=== PATIENT | male | born 1935 | race Caucasian/White ===

== ENCOUNTER 2021-01-02 20:47 | Inpatient (IN) ==
[2021-01-03] MEDS ORDERED: Ondansetron 4 MG/2 ML VIAL IVP PRN (02:35)
[2021-01-03] MEDS ORDERED: Naloxone 0.4 MG/ML INJ IVP PRN (02:35)
[2021-01-03 05:19] LABS: Protein/Creatinine Ratio,Urine 1.44 mg/mg (0.00-0.20); Sodium, Urine 36.3 mEq/L
[2021-01-03] MEDS: Budesonide/Formoterol 160/4.5 1 PUFF INH IH SCH ×2 (07:49→22:28)
[2021-01-03] MEDS ORDERED: *HR* Rivaroxaban 10 MG TABLET PO SCH (09:00)
[2021-01-03 09:49] LABS: Basophils % 0.4 %; Eosinophils # 0.3 K/mcL (0.0-0.6); Eosinophils % 2.9 %; Hematocrit 43.7 % (37.5-50.1); Hemoglobin 13.8 g/dL (12.9-16.9); Immature Granulocytes % 0.7 % (0-4); Lymphocytes # 1.9 K/mcL (0.6-4.6); Lymphocytes % 17.7 %; Mean Corpuscular HGB Conc 31.6 g/dL (31.6-35.5); Mean Corpuscular Hemoglobin 28.6 pg (28.0-33.3); Mean Corpuscular Volume 90.7 fL (83.0-100.0); Monocytes # 1.4 K/mcL (0.0-1.3); Monocytes % 13.2 %; Platelet Count 231 K/mcL (140-400); Red Blood Count 4.82 M/mcL (4.19-5.50); Red Cell Distribution Width 14.2 % (11.5-14.5); Segmented Neutrophils % 65.1 %; White Blood Count 10.8 K/mcL (4.3-11.1)
[2021-01-03 10:06] LABS: Calcium 9.2 mg/dL (8.6-10.3); Potassium 5.1 mEq/L (3.5-5.1)
[2021-01-03 10:20] LABS: Thyroid Stimulating Hormone 2.128 mcIU/mL (0.340-5.600)
[2021-01-03] MEDS: cefTRIAXone 1,000 MG in Water for inj. (sterile) 10 ML IVP SCH (11:11)
[2021-01-03] MEDS: Loratadine 10 MG TABLET PO SCH (11:12)
[2021-01-03] MEDS ORDERED: 0.9 % Sodium Chloride 1,000 ML IVC ONE (11:51)
[2021-01-03] MEDS: 0.9 % Sodium Chloride 1,000 ML IVC SCH (13:33)
[2021-01-03 15:02] LABS: Complement C3 88 mg/dL (87-200)
[2021-01-03 18:17] LABS: Protein/Creatinine Ratio,Urine 0.91 mg/mg (0.00-0.20)
[2021-01-04] MEDS: 0.9 % Sodium Chloride 1,000 ML IVC SCH ×2 (00:07→10:11)
[2021-01-04 01:54] LABS: Basophils % 0.3 %; Eosinophils # 0.2 K/mcL (0.0-0.6); Eosinophils % 1.9 %; Hematocrit 42.1 % (37.5-50.1); Hemoglobin 13.5 g/dL (12.9-16.9); Immature Granulocytes % 0.8 % (0-4); Lymphocytes # 1.5 K/mcL (0.6-4.6); Lymphocytes % 14.3 %; Mean Corpuscular HGB Conc 32.1 g/dL (31.6-35.5); Mean Corpuscular Hemoglobin 29.2 pg (28.0-33.3); Mean Corpuscular Volume 91.1 fL (83.0-100.0); Mean Platelet Volume 10.3 fL (9.4-12.4); Monocytes # 1.4 K/mcL (0.0-1.3); Monocytes % 13.3 %; Neutrophils # 7.4 K/mcL (1.6-8.9); Platelet Count 204 K/mcL (140-400); Red Blood Count 4.62 M/mcL (4.19-5.50); Red Cell Distribution Width 14.3 % (11.5-14.5); Segmented Neutrophils % 69.4 %; White Blood Count 10.6 K/mcL (4.3-11.1)
[2021-01-04 02:15] LABS: Calcium 8.7 mg/dL (8.6-10.3); Magnesium 1.4 mg/dL (1.6-2.6); Phosphorous 2.1 mg/dL (2.7-4.5)
[2021-01-04] MEDS: Budesonide/Formoterol 160/4.5 1 PUFF INH IH SCH ×2 (07:29→22:03)
[2021-01-04] MEDS: *HR* Rivaroxaban 15 MG TABLET PO SCH (10:11)
[2021-01-04] MEDS: Finasteride 5 MG TABLET PO SCH (10:11)
[2021-01-04] MEDS: Loratadine 10 MG TABLET PO SCH (10:11)
[2021-01-04] MEDS: cefTRIAXone 1,000 MG in Water for inj. (sterile) 10 ML IVP SCH (10:12)
[2021-01-05 07:16] LABS: Basophils % 0.3 %; Eosinophils # 0.3 K/mcL (0.0-0.6); Eosinophils % 3.2 %; Hematocrit 36.5 % (37.5-50.1); Immature Granulocytes % 0.7 % (0-4); Lymphocytes # 1.6 K/mcL (0.6-4.6); Lymphocytes % 15.2 %; Mean Corpuscular HGB Conc 31.8 g/dL (31.6-35.5); Mean Corpuscular Hemoglobin 28.8 pg (28.0-33.3); Mean Corpuscular Volume 90.6 fL (83.0-100.0); Mean Platelet Volume 10.6 fL (9.4-12.4); Monocytes # 1.2 K/mcL (0.0-1.3); Monocytes % 11.9 %; Neutrophils # 7.1 K/mcL (1.6-8.9); Platelet Count 185 K/mcL (140-400); Red Blood Count 4.03 M/mcL (4.19-5.50); Red Cell Distribution Width 14.1 % (11.5-14.5); Segmented Neutrophils % 68.7 %; White Blood Count 10.3 K/mcL (4.3-11.1)
[2021-01-05 07:17] LABS: Hemoglobin 11.6 g/dL (12.9-16.9)
[2021-01-05 07:40] LABS: BUN/Creatinine Ratio 20 (6-26); Blood Urea Nitrogen 24 mg/dL (8-23); Calcium 8.3 mg/dL (8.6-10.3); Carbon Dioxide 26 mEq/L (23-29); Chloride 105 mEq/L (98-107); Glucose 101 mg/dL (70-105); Magnesium 1.4 mg/dL (1.6-2.6); Osmolality,Calculated 288 (280-300); Phosphorous 2.6 mg/dL (2.7-4.5); Potassium 3.3 mEq/L (3.5-5.1); Sodium 137 mEq/L (136-145); eGFR For African Americans > 60 (> 60); eGFR For Non-African Americans 57 (> 60)
[2021-01-05] MEDS: 0.9 % Sodium Chloride 1,000 ML IVC SCH (09:46)
[2021-01-05] MEDS: Finasteride 5 MG TABLET PO SCH (09:47)
[2021-01-05] MEDS: *HR* Rivaroxaban 15 MG TABLET PO SCH (09:47)
[2021-01-05] MEDS: Loratadine 10 MG TABLET PO SCH (09:47)
[2021-01-05] MEDS: Budesonide/Formoterol 160/4.5 1 PUFF INH IH SCH ×2 (09:51→22:20)
[2021-01-05] MEDS ORDERED: Furosemide 20 MG/2 ML VIAL IVP ONE (10:14)
[2021-01-05] MEDS ORDERED: Perflutren Lipid Microsphere 1.3 ML in 0.9 % Sodium Chloride 8.7 ML IVP PRN (10:21)
[2021-01-05] MEDS ORDERED: *HR* Metoprolol 5 MG/5 ML VIAL IVP ONE (10:33)
[2021-01-05 11:08] LABS: ANA IgG by ELISA NONE DETECTED (None Detected); Serine Protease-3 Antibody 1 AU/mL (0-19)
[2021-01-05 11:28] LABS: ABG Base Excess 0 mEq/L (-2 to 3); ABG HCO3 24 mEq/L (21-27); ABG Oxygen Saturation 100 % (95-98); ABG PCO2 35 mmHg (35-45); ABG PH 7.44 pH Units (7.32-7.45); ABG PO2 213 mmHg (85-104); ABG TCO2 25 mEq/L (20-26)
[2021-01-05] MEDS ORDERED: Magnesium Oxide 400 MG TABLET PO ONE (11:58)
[2021-01-05] MEDS ORDERED: Metoprolol XL (24 HR) Succ 50 MG TAB.ER.24H PO ONE (12:08)
[2021-01-05] MEDS ORDERED: Magnesium Sulfate 1 GM/102 ML PIGGYBACK IVPB ONE (15:34)
[2021-01-05 19:34] VITALS: TEMP 97.8
[2021-01-05] MEDS: Metoprolol XL (24 HR) Succ 50 MG TAB.ER.24H PO SCH (19:48)
[2021-01-06 04:28] VITALS: BP 105/72; PULSE 82
[2021-01-06 06:44] LABS: Basophils % 0.3 %; Eosinophils # 0.4 K/mcL (0.0-0.6); Eosinophils % 3.8 %; Hematocrit 37.8 % (37.5-50.1); Hemoglobin 12.5 g/dL (12.9-16.9); Immature Granulocytes % 0.8 % (0-4); Lymphocytes # 1.4 K/mcL (0.6-4.6); Lymphocytes % 13.9 %; Mean Corpuscular HGB Conc 33.1 g/dL (31.6-35.5); Mean Corpuscular Hemoglobin 29.6 pg (28.0-33.3); Mean Corpuscular Volume 89.6 fL (83.0-100.0); Mean Platelet Volume 10.4 fL (9.4-12.4); Monocytes # 1.3 K/mcL (0.0-1.3); Monocytes % 12.4 %; Platelet Count 196 K/mcL (140-400); Red Blood Count 4.22 M/mcL (4.19-5.50); Segmented Neutrophils % 68.8 %; White Blood Count 10.1 K/mcL (4.3-11.1)
[2021-01-06 07:03] LABS: BUN/Creatinine Ratio 17 (6-26); Blood Urea Nitrogen 18 mg/dL (8-23); Calcium 8.7 mg/dL (8.6-10.3); Carbon Dioxide 29 mEq/L (23-29); Chloride 100 mEq/L (98-107); Glucose 99 mg/dL (70-105); Magnesium 1.5 mg/dL (1.6-2.6); Osmolality,Calculated 284 (280-300); Phosphorous 2.2 mg/dL (2.7-4.5); Potassium 3.4 mEq/L (3.5-5.1); Sodium 136 mEq/L (136-145); eGFR For African Americans > 60 (> 60); eGFR For Non-African Americans > 60 (> 60)
[2021-01-06] MEDS: Budesonide/Formoterol 160/4.5 1 PUFF INH IH SCH (07:32)
[2021-01-06 08:22] VITALS: O2SAT 97
[2021-01-06] MEDS: Loratadine 10 MG TABLET PO SCH (09:00)
[2021-01-06] MEDS ORDERED: *HR* Rivaroxaban 10 MG TABLET PO SCH (09:00)
[2021-01-06] MEDS: Metoprolol XL (24 HR) Succ 50 MG TAB.ER.24H PO SCH (09:00)
[2021-01-06] MEDS ORDERED: Potassium Chloride Elixir 20 MEQ/15 ML UDC PO SCH (09:15)
[2021-01-06] MEDS: Finasteride 5 MG TABLET PO SCH (10:50)
[2021-01-07 17:11] LABS: Alpha 2 Globulin (PEP) 0.79 g/dL (0.48-1.05); Beta Globulin (PEP) 0.56 g/dL (0.48-1.10)
[2021-01-08 07:48] LABS: IFE Reflexed IFE Done; Immunoglobulin A 186 mg/dL (68-408); Immunoglobulin G 503 mg/dL (768-1632); Immunoglobulin M 101 mg/dL (35-263)
== END 2021-01-06 15:42 | disposition home health service (06) | DRG 682 ==
LOC: 2NENU
PROVIDERS: ADMIT Student in an Organized Health Care Education/Training Program; ATTEND Student in an Organized Health Care Education/Training Program

== ENCOUNTER 2021-03-20 00:48 | Inpatient (IN) ==
[2021-03-21] MEDS ORDERED: Ondansetron 4 MG/2 ML VIAL IVP PRN (06:41)
[2021-03-21] MEDS ORDERED: Naloxone 0.4 MG/ML INJ IVP PRN (06:41)
[2021-03-21] MEDS ORDERED: Ipratropium/Albuterol Neb 3 ML IH PRN (06:43)
[2021-03-21 07:11] LABS: Basophils % 0.3 %; Hematocrit 47.1 % (37.5-50.1); Hemoglobin 14.9 g/dL (12.9-16.9); Immature Granulocytes % 0.4 % (0-4); Lymphocytes # 0.9 K/mcL (0.6-4.6); Lymphocytes % 13.6 %; Mean Corpuscular HGB Conc 31.6 g/dL (31.6-35.5); Mean Corpuscular Hemoglobin 29.3 pg (28.0-33.3); Mean Corpuscular Volume 92.5 fL (83.0-100.0); Mean Platelet Volume 9.3 fL (9.4-12.4); Monocytes # 0.1 K/mcL (0.0-1.3); Monocytes % 1.2 %; Neutrophils # 5.6 K/mcL (1.6-8.9); Platelet Count 289 K/mcL (140-400); Red Blood Count 5.09 M/mcL (4.19-5.50); Red Cell Distribution Width 13.2 % (11.5-14.5); Segmented Neutrophils % 84.5 %; White Blood Count 6.7 K/mcL (4.3-11.1)
[2021-03-21 07:22] LABS: INR 1.6
[2021-03-21 07:30] LABS: BUN/Creatinine Ratio 23 (6-26); Blood Urea Nitrogen 32 mg/dL (8-23); Calcium 10.7 mg/dL (8.6-10.3); Carbon Dioxide 30 mEq/L (23-29); Chloride 96 mEq/L (98-107); Glucose 169 mg/dL (70-105); Osmolality,Calculated 295 (280-300); Potassium 4.3 mEq/L (3.5-5.1); Sodium 137 mEq/L (136-145); eGFR For African Americans > 60 (> 60); eGFR For Non-African Americans 50 (> 60)
[2021-03-21 07:48] LABS: Chol/HDL Ratio 2.3 (0-4.9)
[2021-03-21] MEDS ORDERED: 0.9 % Sodium Chloride 500 ML IVC ONE (07:59)
[2021-03-21] MEDS: Ipratropium/Albuterol Neb 3 ML IH SCH ×5 (08:04→23:23)
[2021-03-21] MEDS: Budesonide/Formoterol 160/4.5 1 PUFF INH IH SCH ×2 (08:04→20:06)
[2021-03-21] MEDS ORDERED: MethylPREDNISolone 40 MG/ML VIAL IVP SCH (09:00)
[2021-03-21] MEDS ORDERED: lisinopriL 10 MG TABLET PO SCH (09:00)
[2021-03-21] MEDS: MethylPREDNISolone 40 MG/ML VIAL IVP SCH ×2 (09:32→16:22)
[2021-03-21] MEDS: Metoprolol XL (24 HR) Succ 50 MG TAB.ER.24H PO SCH ×2 (10:58→22:10)
[2021-03-21] MEDS ORDERED: *HR* Rivaroxaban 15 MG TABLET PO SCH (17:00)
[2021-03-21] MEDS ORDERED: cefTRIAXone 1,000 MG in 0.9 % Sodium Chloride Mini Bag 100 ML IVPB SCH (21:00)
[2021-03-21] MEDS: Azithromycin 500 MG in 0.9 % Sodium Chloride 250 ML IVPB SCH (22:11)
[2021-03-22] MEDS: MethylPREDNISolone 40 MG/ML VIAL IVP SCH ×4 (01:01→23:47)
[2021-03-22] MEDS: Ipratropium/Albuterol Neb 3 ML IH SCH ×6 (03:55→23:28)
[2021-03-22 05:41] LABS: Basophils % 0.1 %; Hematocrit 40.3 % (37.5-50.1); Immature Granulocytes % 0.5 % (0-4); Lymphocytes # 1.1 K/mcL (0.6-4.6); Lymphocytes % 11.2 %; Mean Corpuscular HGB Conc 32.5 g/dL (31.6-35.5); Mean Corpuscular Hemoglobin 29.3 pg (28.0-33.3); Mean Corpuscular Volume 90.2 fL (83.0-100.0); Mean Platelet Volume 9.6 fL (9.4-12.4); Monocytes # 0.3 K/mcL (0.0-1.3); Monocytes % 3.1 %; Neutrophils # 8.1 K/mcL (1.6-8.9); Platelet Count 287 K/mcL (140-400); Red Blood Count 4.47 M/mcL (4.19-5.50); Red Cell Distribution Width 12.9 % (11.5-14.5); Segmented Neutrophils % 85.1 %; White Blood Count 9.5 K/mcL (4.3-11.1)
[2021-03-22 05:43] LABS: Hemoglobin 13.1 g/dL (12.9-16.9)
[2021-03-22 06:00] LABS: BUN/Creatinine Ratio 35 (6-26); Blood Urea Nitrogen 37 mg/dL (8-23); Carbon Dioxide 31 mEq/L (23-29); Chloride 99 mEq/L (98-107); Glucose 156 mg/dL (70-105); Osmolality,Calculated 298 (280-300); Potassium 3.7 mEq/L (3.5-5.1); Sodium 138 mEq/L (136-145); eGFR For African Americans > 60 (> 60); eGFR For Non-African Americans > 60 (> 60)
[2021-03-22] MEDS: Budesonide/Formoterol 160/4.5 1 PUFF INH IH SCH ×2 (07:32→20:09)
[2021-03-22] MEDS ORDERED: GuaiFENesin Liq 200 MG/10 ML UDC PO PRN (08:10)
[2021-03-22] MEDS: Metoprolol XL (24 HR) Succ 50 MG TAB.ER.24H PO SCH ×2 (08:14→20:41)
[2021-03-22 09:03] LABS: Adenovirus Not Detected (Not Detect); Bordetella Pertussis Not Detected (Not Detect); Chlamydophila pneumoniae Not Detected (Not Detect); Coronavirus 229E Not Detected (Not Detect); Coronavirus HKU1 Not Detected (Not Detect); Coronavirus NL63 Not Detected (Not Detect); Coronavirus OC43 Not Detected (Not Detect); Human Metapneumovirus Not Detected (Not Detect); Human Rhinovirus/Enterovirus Not Detected (Not Detect); Influenza A Subtype 2009 H1 Not Detected (Not Detect); Influenza B Not Detected (Not Detect); Mycoplasma pneumoniae Not Detected (Not Detect); Parainfluenza Virus 1 Not Detected (Not Detect); Parainfluenza Virus 2 Not Detected (Not Detect); Parainfluenza Virus 3 Not Detected (Not Detect); Parainfluenza Virus 4 Not Detected (Not Detect); Respiratory Syncytial Virus Not Detected (Not Detect); SARS-CoV-2 Not Detected (Not Detect)
[2021-03-22] MEDS ORDERED: *HR* Rivaroxaban 10 MG TABLET PO SCH (17:00)
[2021-03-22] MEDS: Azithromycin 500 MG in 0.9 % Sodium Chloride 250 ML IVPB SCH (20:41)
[2021-03-22] MEDS ORDERED: Budesonide/Formoterol 160/4.5 1 PUFF INH IH SCH (22:00)
[2021-03-23] MEDS: Ipratropium/Albuterol Neb 3 ML IH SCH ×3 (04:21→11:57)
[2021-03-23 06:51] LABS: BUN/Creatinine Ratio 42 (6-26); Blood Urea Nitrogen 45 mg/dL (8-23); Calcium 9.8 mg/dL (8.6-10.3); Carbon Dioxide 32 mEq/L (23-29); Chloride 99 mEq/L (98-107); Glucose 153 mg/dL (70-105); Osmolality,Calculated 301 (280-300); Potassium 3.4 mEq/L (3.5-5.1); Sodium 138 mEq/L (136-145); eGFR For African Americans > 60 (> 60); eGFR For Non-African Americans > 60 (> 60)
[2021-03-23] MEDS: Budesonide/Formoterol 160/4.5 1 PUFF INH IH SCH (08:01)
[2021-03-23] MEDS: MethylPREDNISolone 40 MG/ML VIAL IVP SCH (08:09)
[2021-03-23] MEDS: Metoprolol XL (24 HR) Succ 50 MG TAB.ER.24H PO SCH (08:10)
[2021-03-23] MEDS ORDERED: Loratadine 10 MG TABLET PO SCH (09:00)
[2021-03-23 10:29] VITALS: BP 97/58; PULSE 88; TEMP 97.7
[2021-03-23 12:45] VITALS: O2SAT 91
== END 2021-03-23 14:02 | disposition home health service (06) | DRG 189 ==
LOC: 2ANU → SUATTDRO 03-21 15:00
PROVIDERS: ADMIT Student in an Organized Health Care Education/Training Program; ATTEND Internal Medicine

== ENCOUNTER 2021-10-11 03:40 | Inpatient (IN) ==
[2021-10-11] MEDS ORDERED: Naloxone 0.4 MG/ML INJ IVP PRN (07:25)
[2021-10-11] MEDS ORDERED: Ondansetron ODT 4 MG TAB.RAPDIS SL PRN (07:25)
[2021-10-11] MEDS ORDERED: Acetaminophen 325 MG TABLET PO PRN (07:25)
[2021-10-11] MEDS ORDERED: Melatonin 3 MG TABLET PO PRN (07:25)
[2021-10-11] MEDS ORDERED: Furosemide 40 MG/4 ML VIAL IVP ONE (08:17)
[2021-10-11] MEDS ORDERED: Dextrose 4 GM Chewable Tablets PO PRN ×2 (08:47)
[2021-10-11] MEDS ORDERED: *HR* Dextrose 50 % in Water (Syg) 50 ML SYRINGE IVP PRN (08:47)
[2021-10-11] MEDS ORDERED: D5% in Water 1,000 ML IVC PRN (08:47)
[2021-10-11] MEDS: Tiotropium 10 INH DOSE IH SCH (10:44)
[2021-10-11] MEDS ORDERED: Albumin 25% 25gram/100mL 25 GM/100 ML IV.SOLN IVPB ONE (11:58)
[2021-10-11] MEDS: Insulin LISPRO 300 UNITS/3 ML VIAL SUBQ SCH ×3 (13:44→20:38)
[2021-10-11 15:24] LABS: BUN/Creatinine Ratio 19 (6-26); Blood Urea Nitrogen 24 mg/dL (8-23); Calcium 9.5 mg/dL (8.6-10.3); Carbon Dioxide 30 mEq/L (23-29); Chloride 84 mEq/L (98-107); Glucose 136 mg/dL (70-105); Osmolality,Calculated 266 (280-300); Potassium 4.1 mEq/L (3.5-5.1); Sodium 125 mEq/L (136-145); eGFR For African Americans > 60 (> 60); eGFR For Non-African Americans 56 (> 60)
[2021-10-11] MEDS: Piperacillin/Tazobactam 3.375 GM in 0.9 % Sodium Chloride Mini Bag 100 ML IVPB SCH (17:12)
[2021-10-11] MEDS: Budesonide/Formoterol 160/4.5 1 PUFF INH IH SCH (19:47)
[2021-10-12] MEDS: Piperacillin/Tazobactam 3.375 GM in 0.9 % Sodium Chloride Mini Bag 100 ML IVPB SCH ×4 (02:00→23:32)
[2021-10-12 02:40] LABS: Basophils % 0.4 %; Eosinophils # 0.1 K/mcL (0.0-0.6); Eosinophils % 0.9 %; Hematocrit 30.4 % (37.5-50.1); Hemoglobin 9.7 g/dL (12.9-16.9); Immature Granulocytes % 0.4 % (0-4); Lymphocytes # 0.9 K/mcL (0.6-4.6); Lymphocytes % 10.9 %; Mean Corpuscular HGB Conc 31.9 g/dL (31.6-35.5); Mean Corpuscular Hemoglobin 24.8 pg (28.0-33.3); Mean Corpuscular Volume 77.7 fL (83.0-100.0); Mean Platelet Volume 9.6 fL (9.4-12.4); Monocytes # 1.3 K/mcL (0.0-1.3); Monocytes % 15.6 %; Neutrophils # 6.2 K/mcL (1.6-8.9); Platelet Count 335 K/mcL (140-400); Red Blood Count 3.91 M/mcL (4.19-5.50); Red Cell Distribution Width 15.5 % (11.5-14.5); Segmented Neutrophils % 71.8 %; White Blood Count 8.6 K/mcL (4.3-11.1)
[2021-10-12 03:02] LABS: Blood Urea Nitrogen 24 mg/dL (8-23); Calcium 9.7 mg/dL (8.6-10.3); Carbon Dioxide 33 mEq/L (23-29); Chloride 86 mEq/L (98-107); Glucose 94 mg/dL (70-105); Magnesium 1.9 mg/dL (1.6-2.6); Osmolality,Calculated 272 (280-300); Potassium 3.2 mEq/L (3.5-5.1); Sodium 129 mEq/L (136-145)
[2021-10-12 03:11] LABS: BUN/Creatinine Ratio 19 (6-26); eGFR For African Americans > 60 (> 60); eGFR For Non-African Americans 54 (> 60)
[2021-10-12] MEDS: Tiotropium 10 INH DOSE IH SCH (07:27)
[2021-10-12] MEDS: Budesonide/Formoterol 160/4.5 1 PUFF INH IH SCH ×2 (07:27→19:57)
[2021-10-12] MEDS: Insulin LISPRO 300 UNITS/3 ML VIAL SUBQ SCH ×4 (08:51→20:56)
[2021-10-12] MEDS: Furosemide 20 MG/2 ML VIAL IVP SCH ×2 (14:00→16:40)
[2021-10-12 14:35] LABS: Alanine Aminotransferase 73 Units/L (7-52); Albumin 3.4 g/dL (3.5-5.7); Albumin/Globulin Ratio 1.8 (1.1-2.2); Alkaline Phosphatase 69 Units/L (34-104); Aspartate Amino Transferase 102 Units/L (13-39); Bilirubin,Direct 0.4 mg/dL (0.0-0.2); Bilirubin,Indirect 0.6 mg/dL (0.0-1.0); Globulin 1.9 g/dL (2.4-3.5); Total Protein 5.3 g/dL (6.4-8.9)
[2021-10-13 02:28] LABS: BUN/Creatinine Ratio 21 (6-26); Blood Urea Nitrogen 23 mg/dL (8-23); Calcium 9.1 mg/dL (8.6-10.3); Carbon Dioxide 33 mEq/L (23-29); Chloride 89 mEq/L (98-107); Glucose 206 mg/dL (70-105); Osmolality,Calculated 282 (280-300); Potassium 2.9 mEq/L (3.5-5.1); Sodium 131 mEq/L (136-145); eGFR For African Americans > 60 (> 60); eGFR For Non-African Americans > 60 (> 60)
[2021-10-13] MEDS: Piperacillin/Tazobactam 3.375 GM in 0.9 % Sodium Chloride Mini Bag 100 ML IVPB SCH ×2 (08:01→16:10)
[2021-10-13] MEDS: Insulin LISPRO 300 UNITS/3 ML VIAL SUBQ SCH ×4 (08:02→19:40)
[2021-10-13] MEDS: Furosemide 20 MG/2 ML VIAL IVP SCH (08:02)
[2021-10-13] MEDS: Finasteride 5 MG TABLET PO SCH (08:02)
[2021-10-13] MEDS: Budesonide/Formoterol 160/4.5 1 PUFF INH IH SCH ×2 (09:17→20:25)
[2021-10-13] MEDS: Tiotropium 10 INH DOSE IH SCH (09:18)
[2021-10-13] MEDS: *HR* Rivaroxaban 10 MG TABLET PO SCH (16:11)
[2021-10-13] MEDS: Ipratropium/Albuterol Neb 3 ML IH SCH (23:39)
[2021-10-14] MEDS: Piperacillin/Tazobactam 3.375 GM in 0.9 % Sodium Chloride Mini Bag 100 ML IVPB SCH
[2021-10-14] MEDS: Ipratropium/Albuterol Neb 3 ML IH SCH ×5 (04:04→19:19)
[2021-10-14] MEDS: Tiotropium 10 INH DOSE IH SCH (07:24)
[2021-10-14] MEDS: Budesonide/Formoterol 160/4.5 1 PUFF INH IH SCH ×2 (07:25→19:20)
[2021-10-14] MEDS ORDERED: Furosemide 20 MG/2 ML VIAL IVP SCH (08:15)
[2021-10-14] MEDS: Insulin LISPRO 300 UNITS/3 ML VIAL SUBQ SCH ×4 (09:05→20:01)
[2021-10-14] MEDS: Finasteride 5 MG TABLET PO SCH (09:05)
[2021-10-14] MEDS: *HR* Rivaroxaban 10 MG TABLET PO SCH (17:10)
[2021-10-14] MEDS ORDERED: *HR* Metoprolol 5 MG/5 ML VIAL IVP ONE (21:55)
[2021-10-15] MEDS: Ipratropium/Albuterol Neb 3 ML IH SCH ×6 (03:41→23:20)
[2021-10-15 05:19] LABS: Hematocrit 33.8 % (37.5-50.1); Hemoglobin 10.5 g/dL (12.9-16.9); Mean Corpuscular HGB Conc 31.1 g/dL (31.6-35.5); Mean Corpuscular Hemoglobin 24.6 pg (28.0-33.3); Mean Corpuscular Volume 79.3 fL (83.0-100.0); Mean Platelet Volume 9.2 fL (9.4-12.4); Platelet Count 372 K/mcL (140-400); Red Blood Count 4.26 M/mcL (4.19-5.50); Red Cell Distribution Width 15.9 % (11.5-14.5); White Blood Count 10.4 K/mcL (4.3-11.1)
[2021-10-15 05:46] LABS: Troponin I 0.06 ng/mL (< 0.04)
[2021-10-15 05:49] LABS: Alanine Aminotransferase 44 Units/L (7-52); Albumin 3.7 g/dL (3.5-5.7); Albumin/Globulin Ratio 1.5 (1.1-2.2); Alkaline Phosphatase 70 Units/L (34-104); Aspartate Amino Transferase 40 Units/L (13-39); BUN/Creatinine Ratio 17 (6-26); Bilirubin,Direct 0.4 mg/dL (0.0-0.2); Bilirubin,Indirect 0.9 mg/dL (0.0-1.0); Bilirubin,Total 1.3 mg/dL (0.3-1.0); Blood Urea Nitrogen 18 mg/dL (8-23); Calcium 9.8 mg/dL (8.6-10.3); Carbon Dioxide 31 mEq/L (23-29); Chloride 91 mEq/L (98-107); Globulin 2.4 g/dL (2.4-3.5); Glucose 127 mg/dL (70-105); Osmolality,Calculated 277 (280-300); Potassium 3.9 mEq/L (3.5-5.1); Sodium 132 mEq/L (136-145); Total Protein 6.1 g/dL (6.4-8.9); eGFR For African Americans > 60 (> 60); eGFR For Non-African Americans > 60 (> 60)
[2021-10-15] MEDS: Insulin LISPRO 300 UNITS/3 ML VIAL SUBQ SCH ×4 (07:16→21:38)
[2021-10-15] MEDS: Budesonide/Formoterol 160/4.5 1 PUFF INH IH SCH ×2 (07:21→19:57)
[2021-10-15] MEDS: Tiotropium 10 INH DOSE IH SCH (07:24)
[2021-10-15] MEDS ORDERED: Furosemide 20 MG TABLET PO SCH (08:00)
[2021-10-15] MEDS: Finasteride 5 MG TABLET PO SCH (08:08)
[2021-10-15] MEDS: Furosemide 20 MG TABLET PO SCH (08:09)
[2021-10-15] MEDS ORDERED: hydroCHLOROthiazide 25 MG TABLET PO SCH (09:00)
[2021-10-15] MEDS ORDERED: *HR* Digoxin 0.5 MG/2 ML AMPUL IVP ONE (10:57)
[2021-10-15] MEDS: *HR* Digoxin 0.5 MG/2 ML AMPUL IVP SCH ×2 (18:35→23:55)
[2021-10-15] MEDS: *HR* Rivaroxaban 10 MG TABLET PO SCH (18:35)
[2021-10-16] MEDS: Ipratropium/Albuterol Neb 3 ML IH SCH ×3 (04:16→10:49)
[2021-10-16] MEDS: Budesonide/Formoterol 160/4.5 1 PUFF INH IH SCH (07:17)
[2021-10-16] MEDS: Tiotropium 10 INH DOSE IH SCH (07:20)
[2021-10-16 08:02] VITALS: BP 113/74; PULSE 90; TEMP 98.1; O2SAT 94
[2021-10-16] MEDS: Finasteride 5 MG TABLET PO SCH (08:40)
[2021-10-16] MEDS: Furosemide 20 MG TABLET PO SCH (08:40)
[2021-10-16] MEDS: Insulin LISPRO 300 UNITS/3 ML VIAL SUBQ SCH (08:40)
[2021-10-16] MEDS ORDERED: *HR* Digoxin 0.125 MG TABLET PO SCH (09:00)
== END 2021-10-16 13:16 | disposition hospice, home (50) | DRG 698 ==
LOC: 3NENU → SUATTDRO 08:50
PROVIDERS: ADMIT Student in an Organized Health Care Education/Training Program; ATTEND Internal Medicine

== ENCOUNTER 2021-11-08 22:18 | Inpatient (IN) ==
[2021-11-09] MEDS ORDERED: Naloxone 0.4 MG/ML INJ IVP PRN (01:16)
[2021-11-09] MEDS ORDERED: Ondansetron 4 MG/2 ML VIAL IVP PRN (01:16)
[2021-11-09] MEDS ORDERED: Acetaminophen 325 MG TABLET PO PRN (01:16)
[2021-11-09] MEDS ORDERED: *HR* Heparin 5,000 UNIT/ML VIAL IVP PRN ×2 (01:21)
[2021-11-09] MEDS ORDERED: Perflutren Lipid Microsphere 1.3 ML in 0.9 % Sodium Chloride 8.7 ML IVP PRN (01:28)
[2021-11-09] MEDS ORDERED: Heparin 25,000UNIT/250ML 1/2NS 25,000 UNIT/250 ML IV.SOLN IVC SCH (01:30)
[2021-11-09] MEDS ORDERED: Furosemide 20 MG/2 ML VIAL IVP ONE (01:38)
[2021-11-09] MEDS ORDERED: Dextrose Gel 15 GM/37.5 ML TUBE PO PRN ×2 (01:50)
[2021-11-09] MEDS ORDERED: D5% in Water 1,000 ML IVC PRN (01:50)
[2021-11-09 02:03] LABS: Basophils % 0.2 %; Eosinophils % 0.2 %; Hematocrit 35.3 % (37.5-50.1); Hemoglobin 10.5 g/dL (12.9-16.9); Immature Granulocytes % 0.9 % (0-4); Lymphocytes # 0.5 K/mcL (0.6-4.6); Lymphocytes % 4.4 %; Mean Corpuscular HGB Conc 29.7 g/dL (31.6-35.5); Mean Corpuscular Hemoglobin 23.5 pg (28.0-33.3); Mean Corpuscular Volume 79.1 fL (83.0-100.0); Mean Platelet Volume 10.2 fL (9.4-12.4); Monocytes # 1.8 K/mcL (0.0-1.3); Monocytes % 16.3 %; Neutrophils # 8.7 K/mcL (1.6-8.9); Nucleated Red Blood Cells 0.8 /100 WBC (0); Platelet Count 365 K/mcL (140-400); Red Blood Count 4.46 M/mcL (4.19-5.50); Red Cell Distribution Width 18.7 % (11.5-14.5); White Blood Count 11.1 K/mcL (4.3-11.1)
[2021-11-09 02:08] LABS: VBG HCO3 22 mEq/L (21-27); VBG PCO2 44 mmHg (41-51); VBG PO2 41 mmHg (25-50)
[2021-11-09 02:11] LABS: INR 3.7; Prothrombin Time 40.6 Seconds (9.4-12.1)
[2021-11-09 02:14] LABS: Heparin anti-factor XA UFH 1.49 IU/mL (0.30-0.70)
[2021-11-09] MEDS: methylPREDNISolone 125 MG/2 ML VIAL IVP SCH ×2 (02:21→15:16)
[2021-11-09 02:25] LABS: Calcium 9.5 mg/dL (8.6-10.3); Chol/HDL Ratio 2.6 (0-4.9); Magnesium 2.4 mg/dL (1.6-2.6); Phosphorous 5.4 mg/dL (2.7-4.5); Potassium 4.3 mEq/L (3.5-5.1)
[2021-11-09] MEDS ORDERED: 0.9 % Sodium Chloride 500 ML IVC PRN (02:31)
[2021-11-09 02:35] LABS: Estimated Average Glucose 151 mg/dl; Hemoglobin A1C 6.9 %
[2021-11-09 02:37] LABS: Thyroid Stimulating Hormone 7.053 mcIU/mL (0.340-5.600)
[2021-11-09] MEDS: Vancomycin 1,250 MG/262.5 ML IV.SOLN IVPB SCH (03:05)
[2021-11-09 03:14] LABS: Amphetamine Screen,Urine Negative ng/mL (Cutoff=1000); Barbiturate Screen,Urine Negative ng/mL (Cutoff=200); Benzodiazepines Screen,Urine Negative ng/mL (Cutoff=200); Cannabinoid Screen,Urine Negative ng/mL (Cutoff = 50); Cocaine Screen,Urine Negative ng/mL (Cutoff= 300); Opiate Screen,Urine Negative ng/mL (Cutoff=300); Phencyclidine Screen,Urine Negative ng/mL (Cutoff=25)
[2021-11-09 03:15] LABS: Bilirubin,Urine Negative (Negative); Blood,Urine Moderate (Negative); Budding Yeast,Urine Moderate per hpf (None Seen); Clarity,Urine Turbid (Clear); Color,Urine Yellow (Yellow); Glucose,Urine (UA) Normal (Normal); Hyaline Casts,Urine Few per lpf (None Seen); Ketones,Urine Negative (Negative); Leukocyte Esterase,Urine Large (Negative); Mucus,Urine Few per lpf (None-Few); Nitrite,Urine Negative (Negative); PH,Urine 5.5 pH Units (5.0-8.0); Protein,Urine Trace mg/dL (Neg-Trace); RBC,Urine 15-30 per hpf (0-3); Specific Gravity,Urine > 1.030 (1.010-1.025); WBC,Urine 50-100 per hpf (0-3)
[2021-11-09] MEDS: Heparin 25,000UNIT/250ML 1/2NS 25,000 UNIT/250 ML IV.SOLN IVC SCH (06:03)
[2021-11-09] MEDS: Cefepime HCl 2,000 MG in 0.9 % Sodium Chloride Mini Bag 100 ML IVPB SCH ×2 (06:24→17:40)
[2021-11-09] MEDS: Insulin LISPRO 300 UNITS/3 ML VIAL SUBQ SCH ×3 (06:28→16:07)
[2021-11-09] MEDS ORDERED: Insulin LISPRO 300 UNITS/3 ML VIAL SUBQ ONE (07:30)
[2021-11-09] MEDS ORDERED: Metoprolol XL (24 HR) Succ 25 MG TAB.ER.24H PO SCH ×2 (10:30→11:00)
[2021-11-09] MEDS: Budesonide/Formoterol 160/4.5 1 PUFF INH IH SCH ×2 (11:46→20:08)
[2021-11-09] MEDS: *HR* Dextrose 50 % in Water (Syg) 50 ML SYRINGE IVP PRN (15:19)
[2021-11-09] MEDS: Metoprolol XL (24 HR) Succ 25 MG TAB.ER.24H PO SCH (20:02)
[2021-11-10] MEDS: Insulin LISPRO 300 UNITS/3 ML VIAL SUBQ SCH ×4 (01:30→20:44)
[2021-11-10] MEDS: methylPREDNISolone 125 MG/2 ML VIAL IVP SCH ×2 (01:31→14:16)
[2021-11-10] MEDS: Vancomycin 1,250 MG/262.5 ML IV.SOLN IVPB SCH (01:31)
[2021-11-10] MEDS: *HR* Dextrose 50 % in Water (Syg) 50 ML SYRINGE IVP PRN ×3 (01:53→20:54)
[2021-11-10 03:53] LABS: Basophils % 0.1 %; Hematocrit 34.3 % (37.5-50.1); Hemoglobin 10.6 g/dL (12.9-16.9); Immature Granulocytes % 0.9 % (0-4); Lymphocytes # 0.3 K/mcL (0.6-4.6); Lymphocytes % 1.6 %; Mean Corpuscular HGB Conc 30.9 g/dL (31.6-35.5); Mean Corpuscular Volume 77.6 fL (83.0-100.0); Mean Platelet Volume 10.5 fL (9.4-12.4); Monocytes # 1.7 K/mcL (0.0-1.3); Monocytes % 9.7 %; Neutrophils # 15.3 K/mcL (1.6-8.9); Nucleated Red Blood Cells 0.7 /100 WBC (0); Platelet Count 332 K/mcL (140-400); Red Blood Count 4.42 M/mcL (4.19-5.50); Red Cell Distribution Width 18.5 % (11.5-14.5); Segmented Neutrophils % 87.7 %
[2021-11-10 04:01] LABS: White Blood Count 17.4 K/mcL (4.3-11.1)
[2021-11-10 04:03] LABS: Activated Partial Thrombo Time 67.5 Seconds (26.0-36.0)
[2021-11-10 04:08] LABS: Prothrombin Time 63.5 Seconds (9.4-12.1)
[2021-11-10 04:09] LABS: INR 5.8
[2021-11-10 04:11] LABS: BUN/Creatinine Ratio 24 (6-26); Blood Urea Nitrogen 54 mg/dL (8-23); Calcium 8.9 mg/dL (8.6-10.3); Carbon Dioxide 19 mEq/L (23-29); Chloride 94 mEq/L (98-107); Glucose 125 mg/dL (70-105); Osmolality,Calculated 292 (280-300); Potassium 4.7 mEq/L (3.5-5.1); Sodium 133 mEq/L (136-145); eGFR For African Americans 34 (> 60); eGFR For Non-African Americans 28 (> 60)
[2021-11-10] MEDS: Cefepime HCl 2,000 MG in 0.9 % Sodium Chloride Mini Bag 100 ML IVPB SCH ×2 (05:31→17:17)
[2021-11-10] MEDS: Heparin 25,000UNIT/250ML 1/2NS 25,000 UNIT/250 ML IV.SOLN IVC SCH (05:31)
[2021-11-10 05:46] LABS: Lactate Dehydrogenase > 3600 Units/L (140-271); Total Protein 5.6 g/dL (6.4-8.9)
[2021-11-10] MEDS: Budesonide/Formoterol 160/4.5 1 PUFF INH IH SCH ×2 (08:05→20:39)
[2021-11-10 10:15] LABS: VBG HCO3 17 mEq/L (21-27); VBG PCO2 33 mmHg (41-51); VBG PH 7.31 pH Units (7.32-7.42); VBG PO2 78 mmHg (25-50)
[2021-11-10 10:24] LABS: INR 6.6; Prothrombin Time 72.5 Seconds (9.4-12.1)
[2021-11-10] MEDS: Albumin 25% 25gram/100mL 25 GM/100 ML IV.SOLN IVC SCH ×3 (10:32→17:11)
[2021-11-10] MEDS ORDERED: Albumin 25% 25gram/100mL 25 GM/100 ML IV.SOLN ONE (10:32)
[2021-11-10 10:33] LABS: Vancomycin,Random 19 mcg/mL; Vancomycin,Trough 19 mcg/mL (5-10)
[2021-11-10] MEDS: Metoprolol XL (24 HR) Succ 25 MG TAB.ER.24H PO SCH ×2 (11:11→21:52)
[2021-11-10 11:55] LABS: Acetaminophen < 10 mcg/mL (10-20); Alanine Aminotransferase 1630 Units/L (7-52); Albumin 3.4 g/dL (3.5-5.7); Albumin/Globulin Ratio 1.4 (1.1-2.2); Alkaline Phosphatase 73 Units/L (34-104); Aspartate Amino Transferase > 3000 Units/L (13-39); Bilirubin,Indirect 1.4 mg/dL (0.0-1.0); Bilirubin,Total 3.4 mg/dL (0.3-1.0); Creatine Kinase 459 Units/L (30-223); Globulin 2.4 g/dL (2.4-3.5); Total Protein 5.8 g/dL (6.4-8.9); Uric Acid 15.4 mg/dL (2.3-7.6)
[2021-11-10] MEDS: Albumin 25% 25gram/100mL 25 GM/100 ML IV.SOLN IVPB SCH ×2 (13:33→23:12)
[2021-11-10] MEDS ORDERED: *HR* Metoprolol 5 MG/5 ML VIAL IVP PRN (21:35)
[2021-11-11] MEDS ORDERED: 0.9 % Sodium Chloride 500 ML IV ONE (01:26)
[2021-11-11] MEDS: methylPREDNISolone 125 MG/2 ML VIAL IVP SCH (02:08)
[2021-11-11] MEDS: Insulin LISPRO 300 UNITS/3 ML VIAL SUBQ SCH ×5 (02:09→07:29)
[2021-11-11] MEDS ORDERED: Albumin 25% 25gram/100mL 25 GM/100 ML IV.SOLN IVPB ONE (02:18)
[2021-11-11] MEDS ORDERED: Albumin 25% 25gram/100mL 25 GM/100 ML IV.SOLN ONE (02:21)
[2021-11-11] MEDS: *HR* Dextrose 50 % in Water (Syg) 50 ML SYRINGE IVP PRN (02:33)
[2021-11-11 04:12] LABS: ABG Base Excess -17 mEq/L (-2 to 3); ABG HCO3 12 mEq/L (21-27); ABG Oxygen Saturation 96 % (95-98); ABG PCO2 38 mmHg (35-45); ABG PH 7.09 pH Units (7.32-7.45); ABG PO2 108 mmHg (85-104); ABG TCO2 13 mEq/L (20-26); Blood Gas Pressure Support 6 cm H2O
[2021-11-11 04:15] LABS: Basophils % 0.1 %
[2021-11-11] MEDS ORDERED: DOBUTamine 1,000 MG/250 ML BAG IVC SCH (04:15)
[2021-11-11 04:17] LABS: Eosinophils % 0.1 %; Hematocrit 30.9 % (37.5-50.1); Hemoglobin 8.7 g/dL (12.9-16.9); Lymphocytes # 0.3 K/mcL (0.6-4.6); Lymphocytes % 1.6 %; Mean Corpuscular HGB Conc 28.2 g/dL (31.6-35.5); Mean Corpuscular Hemoglobin 23.7 pg (28.0-33.3); Mean Corpuscular Volume 84.2 fL (83.0-100.0); Mean Platelet Volume 10.8 fL (9.4-12.4); Monocytes # 0.9 K/mcL (0.0-1.3); Monocytes % 4.8 %; Neutrophils # 17.4 K/mcL (1.6-8.9); Nucleated Red Blood Cells 2.6 /100 WBC (0); Platelet Count 256 K/mcL (140-400); Red Blood Count 3.67 M/mcL (4.19-5.50); Red Cell Distribution Width 18.3 % (11.5-14.5); Segmented Neutrophils % 92.4 %; White Blood Count 18.8 K/mcL (4.3-11.1)
[2021-11-11 04:36] LABS: Albumin 4.2 g/dL (3.5-5.7); Albumin/Globulin Ratio 2.6 (1.1-2.2); Alkaline Phosphatase 56 Units/L (34-104); BUN/Creatinine Ratio 21 (6-26); Bilirubin,Direct 2.2 mg/dL (0.0-0.2); Bilirubin,Indirect 1.4 mg/dL (0.0-1.0); Bilirubin,Total 3.6 mg/dL (0.3-1.0); Blood Urea Nitrogen 64 mg/dL (8-23); Calcium 8.2 mg/dL (8.6-10.3); Carbon Dioxide 14 mEq/L (23-29); Chloride 94 mEq/L (98-107); Globulin 1.6 g/dL (2.4-3.5); Glucose 103 mg/dL (70-105); Osmolality,Calculated 299 (280-300); Sodium 135 mEq/L (136-145); Total Protein 5.8 g/dL (6.4-8.9); eGFR For African Americans 24 (> 60); eGFR For Non-African Americans 20 (> 60)
[2021-11-11] MEDS ORDERED: Norepinephrine 4 MG/254 ML IV.SOLN IVC SCH (04:45)
[2021-11-11 04:49] LABS: Anisocytosis 2+ (Not Present); Platelet Estimate Normal (Normal)
[2021-11-11 04:52] LABS: Activated Partial Thrombo Time 99.1 Seconds (26.0-36.0)
[2021-11-11 04:55] LABS: Alanine Aminotransferase 1439 Units/L (7-52); Aspartate Amino Transferase > 3000 Units/L (13-39)
[2021-11-11 04:57] LABS: INR 12.7; Prothrombin Time 139.1 Seconds (9.4-12.1)
[2021-11-11] MEDS ORDERED: Sodium Bicarbonate 150 MEQ in D5% in Water 1,000 ML IVC SCH (05:15)
[2021-11-11] MEDS ORDERED: NOREPINEPHRINE IVC SCH (05:45)
[2021-11-11] MEDS ORDERED: SODIUM CHLORIDE IVC SCH (05:45)
[2021-11-11] MEDS ORDERED: *HR* Phytonadione 10 MG/ML AMPUL SQ ONE (05:59)
[2021-11-11] MEDS: Phenylephrine 20 MG in 0.9 % Sodium Chloride 250 ML IVC SCH ×2 (06:07→07:26)
[2021-11-11] MEDS ORDERED: Calcium Gluconate 1gm/50mL 1 GM/50 ML BAG IVPB ONE (06:57)
[2021-11-11] MEDS ORDERED: 0.9 % Sodium Chloride 250 ML IVC SCH (07:15)
[2021-11-11] MEDS: Metoprolol XL (24 HR) Succ 25 MG TAB.ER.24H PO SCH (07:29)
[2021-11-11] MEDS: Budesonide/Formoterol 160/4.5 1 PUFF INH IH SCH (07:39)
[2021-11-11] MEDS ORDERED: Phenylephrine 100 MG in 0.9 % Sodium Chloride 250 ML IVC SCH (07:45)
[2021-11-11] MEDS ORDERED: Norepinephrine 32 MG/250 ML IV.SOLN IVC SCH (07:45)
[2021-11-11 07:51] VITALS: BP 104/83; TEMP 99.1; O2SAT 89
[2021-11-11 09:15] VITALS: PULSE 155
== END 2021-11-11 08:26 | disposition expired | DRG 871 ==
LOC: 2NNU → SUATTDRO 11-09 01:16
PROVIDERS: ADMIT Internal Medicine; ATTEND Student in an Organized Health Care Education/Training Program